=== PATIENT | female | born 1950 | race African-American/Black ===

== ENCOUNTER 2017-04-06 02:00 | Emergency (ER) | payer MEDICARE, OTHER ==
[~2017-04-06] VITALS: Ht 170.2 cm; Wt 73.0 kg
[2017-04-06] MEDS ORDERED: SODIUM CHLORIDE 0.9% 1,000 ML IV NR (02:16)
[2017-04-06] MEDS ORDERED: OCTREOTIDE ACETATE 50 MCG/ML 1ML IV NR (02:16)
[2017-04-06] MEDS ORDERED: PANTOPRAZOLE SODIUM 40 MG/VIAL IV NR (02:16)
[2017-04-06] MEDS ORDERED: NITROGLYCERIN OINT 1GM/INCH UDPKT TD NR (02:30)
[2017-04-06] MEDS ORDERED: ASPIRIN 81MG TABLET PO NR (02:30)
[2017-04-06 02:48] LABS: BASOPHILS % 0.5 % (0.0-2.0); EOSINOPHILS % 3.1 % (0.0-5.0); HEMATOCRIT. 29.8 % (36.0-48.0); HEMOGLOBIN. 9.8 g/dL (12.0-16.0); LYMPHOCYTES % 46.4 % (20.0-50.0); MEAN CORPUSCULAR HEMOGLOBIN 30.8 pg (28.0-32.0); MEAN CORPUSCULAR VOLUME 93.5 fL (81.0-99.0); MEAN PLATELET VOLUME 7.5 fl (7.4-10.4); MONOCYTES % 5.9 % (2.0-8.0); NEUTROPHILS % 44.1 % (40.0-76.0); PLATELET 197 x1000/uL (130-400); RED BLOOD CELL COUNT 3.18 mill/uL (4.2-5.4); RED CELL DISTRIBUTION WIDTH 13.5 % (11.6-14.6)
[2017-04-06 02:51] LABS: PROTHROMBIN TIME 10.7 sec
[2017-04-06 02:57] LABS: CARBON DIOXIDE 24 mEq/L (21-32); CHLORIDE 107 mEq/L (98-107); ETHANOL BLOOD < 10 mg/dL; TROPONIN I < 0.02 ng/mL (0.00-0.04)
[2017-04-06 05:05] LABS: CLARITY URINE CLEAR (CLEAR); COLOR URINE YELLOW (YELLOW); GLUCOSE URINE NEGATIVE (NEGATIVE); KETONES URINE NEGATIVE (NEGATIVE); LEUKOCYTE ESTERASE URINE 1+ (NEGATIVE); NITRITE URINE NEGATIVE (NEGATIVE); OCCULT BLOOD URINE 3+ (NEGATIVE); PROTEIN URINE NEGATIVE (NEGATIVE); SPECIFIC GRAVITY URINE 1.011 (1.005-1.030); UROBILINOGEN URINE 0.2 E.U./dL (0.2-1.0)
[2017-04-06 05:33] LABS: *AMPHETAMINES SCREEN URINE NEGATIVE (NEGATIVE); *BARBITURATES SCREEN URINE NEGATIVE (NEGATIVE); *BENZODIAZEPINES SCREEN URINE NEGATIVE (NEGATIVE); *COCAINE SCREEN URINE NEGATIVE (NEGATIVE); CANNABINOID URINE SCREEN NEGATIVE (NEGATIVE); METHADONE URINE SCREEN NEGATIVE (NEGATIVE); OPIATES URINE SCREEN NEGATIVE (NEGATIVE); PHENCYCLIDINE URINE SCREEN NEGATIVE (NEGATIVE)
[2017-04-06 06:44] VITALS: BP 118/80
== END 2017-04-06 07:25 | disposition short-term general hospital (02) ==
LOC: ER 02:10 → CANBEDREQ 07:46
DX: R55 Syncope and collapse (principal); K92.2 Gastrointestinal hemorrhage, unspecified; M85.80 Other specified disorders of bone density and structure, unspecified site; Z88.3 Allergy status to other anti-infective agents; Z88.0 Allergy status to penicillin; Z88.2 Allergy status to sulfonamides
CPT/HCPCS: 36415; 71010; 80053; 80305; 81001; 83605; 83690; 83880; 84484; 85025; 85610; 86850; 86900; 86901; 93005; 96374; 96375; 99285; C9113; G0482; J2354; J7030